=== PATIENT | female | born 1975 | race Caucasian/White ===

== ENCOUNTER 2020-12-20 06:40 | Day surgery (SDC) | payer OTHER ==
[~2020-12-20] VITALS: Ht 162.6 cm; Wt 93.0 kg
[~2020-12-20 06:40] MED LIST: IBUP-2077 PO; LISI1TAB51 PO
[2020-12-20] MEDS ORDERED: 0.9%NACL 1000ML 1,000 ML IV ONE (07:36)
[2020-12-20] MEDS ORDERED: PROPOFOL 10 MG/ML 20ML VIAL IV ONE ×3 (08:39→08:53)
[2020-12-20] MEDS ORDERED: EPHEDRINE SULFATE 50 MG/ML AMPULE ONE (09:01)
[2020-12-20 09:05] VITALS: BP 82/35
[2020-12-20 09:10] VITALS: BP 89/58
[2020-12-20 09:15] VITALS: BP 86/44
[2020-12-20 09:30] VITALS: BP 100/66
[2020-12-20] MEDS ORDERED: IPRATROPIUM/ALBUTEROL SULFATE 3 ML SOLUTION IH SCH (09:30)
[2020-12-20] MEDS ORDERED: IPRATROPIUM/ALBUTEROL SULFATE 3 ML SOLUTION IH ONE (09:43)
[2020-12-20 09:45] VITALS: BP 102/65
[2020-12-20 10:00] VITALS: BP 100/51
== END 2020-12-20 10:00 | disposition home or self-care (01) ==
LOC: ENDO 06:40 → DAH 06:40 → ENDO 10:00
PROVIDERS: ATTEND Internal Medicine Gastroenterology
DX: R10.11 Right upper quadrant pain (principal); Z20.822 Contact with and (suspected) exposure to COVID-19; K29.50 Unspecified chronic gastritis without bleeding; I10 Essential (primary) hypertension; F41.9 Anxiety disorder, unspecified; F32.9 Major depressive disorder, single episode, unspecified; Z98.891 History of uterine scar from previous surgery; Z90.710 Acquired absence of both cervix and uterus; Z98.890 Other specified postprocedural states; Z90.49 Acquired absence of other specified parts of digestive tract; Z79.899 Other long term (current) drug therapy
CPT/HCPCS: 43237; 43239; 94640; A4215; A4221; A4222; A4223; A4606; A4620; A4657; A4663; C9803; J2704 ×3; J3490; J7030 ×2; U0003; 43259

== ENCOUNTER 2025-09-27 11:56 | Emergency (ER) | payer BC, OTHER ==
[~2025-09-27] VITALS: Ht 162.6 cm; Wt 86.2 kg
--- NOTE | 2025-09-27 12:04 | ERN ---
ED Note History of Present Illness Stated Complaint: LEFT SIDE PAIN AFTER FALL Chief Complaint: Arm Swelling/Redness Time Seen by MD: 11:58 Dictation: PATIENT IS A 50-YEAR-OLD FEMALE COMING IN TODAY WITH COMPLAINTS OF LEFT ELBOW, LEFT HIP AND LEFT KNEE PAIN STATUS POST A SAME LEVEL TRIP FALL TWO NIGHTS AGO. SHE DENIES SYNCOPE SAID IT WAS A MECHANICAL FALL. NO HEAD INJURY NO LOC NO BLOOD THINNERS. 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 TOOK IBUPROFEN PRIOR TO ARRIVAL TODAY. Allergies: Coded Allergies: No Known Allergies (Unverified Allergy, Unknown, 09/27/25) Home Meds Reported Medications Ibuprofen (Ibuprofen 800 mg Tab) 800 Mg Tab, 800 MG PO Q6H PRN for PAIN, TAB 12/19/20 Lisinopril/Hydrochlorothiazide (Lisinopril-Hctz 20-12.5 mg Tab) 1 Each Tablet, 1 EACH PO DAILY, TAB 12/19/20 Past Medical History Past Medical History: Hypertension Surgical History: Appendectomy, Hysterectomy, Cholecystectomy, History: Not Applicable RN Note Reviewed/Agreed w/PFSH: Yes Review of System Dictation CONSTITUTIONAL: NEGATIVE EXCEPT FOR HPI HEAD/FACE: NEGATIVE EXCEPT FOR HPI EENT: NEGATIVE EXCEPT FOR HPI RESPIRATORY: NEGATIVE EXCEPT FOR HPI GASTROINTESTINAL/ABDOMINAL: NEGATIVE EXCEPT FOR HPI GENITOURINARY: NEGATIVE EXCEPT FOR HPI MUSCULOSKELETAL: NEGATIVE EXCEPT FOR HPI LEFT ELBOW/LEFT HIP/LEFT KNEE PAIN INTEGUMENTARY: NEGATIVE EXCEPT FOR HPI NEUROLOGICAL/PSYCH: NEGATIVE EXCEPT FOR HPI HEMATOLOGIC/LYMPHATIC: NEGATIVE EXCEPT FOR HPI ALL SYSTEMS NEGATIVE, EXCEPT NOTED ABOVE. 13 POINT REVIEW OF SYSTEMS ASSESSED AND ALL NEGATIVE EXCEPT FOR ABOVE. Initial Vital Sign VS Vital Signs Date Time Temp Pulse Resp B/P (MAP) Pulse Ox O2 Delivery O2 Flow Rate FiO2 09/27/25 11:57 98.2 95 16 149/86 98 Room Air 0 Physical Exam Dictation VITAL SIGNS REVIEWED GENERAL APPEARANCE: ALERT, ORIENTED X 3, MODERATE ACUTE DISTRESS, WELL DEVELOPED, NOURISHED. HEAD AND FACE: NON-TRAUMATIC. EYES: PERRL, PINK CONJUNCTIVAS, EYELID NO TRAUMA, ANTERIOR CHAMBER WITH ARCUS SENILIS. EARS: PINNAS INTACT AND NO SIGNS OF TRAUMA OR ERYTHEMA EAR CANALS CLEAR AND NO DISCHARGE TM NO ERYTHEMA NOSE: NO DISCHARGE, NO BLEEDING. OROPHARYNX: MOUTH NORMAL, TONGUE PINK, PHARYNX CLEAR,NO ERYTHEMA, TONSILS NO EXUDATES, NO ABSCESSES NOTED, MUCOUS MEMBRANE MOIST NECK: SUPPLE, NON-TENDER, NO THYROMEGALY, NO MASSES, NO JVD, NO BRUITS BREAST:DEFERRED CHEST:NO TENDERNESS, NO CREPITUS, NO PARADOXICAL MOVEMENT, NO RETRACTIONS LUNGS:CLEAR, WELL-VENTILATED, SYMMETRIC, NO RALES, NO WHEEZING, NO RHONCHI, NO STRIDOR, GOOD BREATH SOUNDS BILATERALLY HEART: REGULAR RATE, REGULAR RHYTHM, NO MURMUR, NO GALLOPS VASCULAR: NO PERIPHERAL EDEMA, ABDOMEN: SOFT, POSITIVE BOWEL SOUNDS, NONDISTENDED, NO GUARDING, NONTENDER, NO REBOUND, NO MASSES NO HEPATOMEGALY, NO SPLENOMEGALY, NO VILLEGAS'S SIGN, NO HERNIAS. RECTAL: DEFERRED GENITAL: DEFERRED NEUROLOGICAL: NORMAL SPEECH, MOTOR FUNCTION INTACT, SENSORY FUNCTION INTACT MUSCULOSKELETAL: LEFT LATERAL ELBOW WITH A ABRASION AND SWELLING. RESEARCH MOTION SECONDARY TO PAIN LEFT HIP AND LEFT ANTERIOR KNEE PAIN TENDERNESS. NO ROTATION OR SHORTENING. FULL RANGE OF MOTION NOTED. SKIN: COLOR PINK, DRY, NO TURGOR, NO RASH, NO LACERATIONS, NO ABRASIONS, NO CONTUSIONS. LYMPHATIC: DEFERRED Results (Laboratory/Radiology) Laboratory/Radiology 1320/LEFT ELBOW X-RAY NEGATIVE NO FAT PAD SIGN LEFT HIP NEGATIVE LEFT KNEE NEGATIVE Labs Reviewed?: Yes ED Course ED Course Orders Procedure Category Date Status Time Knee 3vws Lt RAD 09/27/25 Taken 12:01 Hip Unilat 2-3vw Left RAD 09/27/25 Taken 12:01 Elbow Comp 3+Vws Lt RAD 09/27/25 Taken 12:01 Acetaminophen 500mg PHA 09/27/25 Complete Tab (Tylenol 500mg T 12:30 Current Medications Medications (Trade) Dose Ordered Sig/Olesya Route PRN Reason Start Time Stop Time Status Last Admin Dose Admin Acetaminophen (TYLenol 500MG TAB) 1,000 mg ONCE ONCE PO 09/27/25 12:30 09/27/25 12:31 DC Vital Signs Date Time Temp Pulse Resp B/P (MAP) Pulse Ox O2 Delivery O2 Flow Rate FiO2 09/27/25 11:57 98.2 95 16 149/86 98 Room Air 0 1320/PATIENT AWARE THAT ALL HER X-RAY FINDINGS ARE NEGATIVE. SHE WILL BE PRESCRIBED IBUPROFEN 800 MG AND TOLD TO SEE HER DOCTOR IN THE NEXT 1-2 DAYS Medical Decision Making MDM MEDICAL DISCHARGE MAKING BASED ON EMPIRIC TREATMENT OF PAIN SECONDARY TO FALL LEFT ELBOW/LEFT KNEE/LEFT HIP X-RAYS PERFORMED AND NEGATIVE PATIENT DISCHARGED HOME WITH RICE INFORMATION IBUPROFEN 800 MG Q 8 HOURS ACTIVITY TOLERATED AND SEE HER PRIMARY CARE DOCTOR DX & DISP Disposition: Discharge Departure Impression: Primary Impression: Contusion of left elbow, initial encounter Additional Impressions: Contusion of left hip, initial encounter, Contusion of left knee, initial encounter, Fall Condition: Stable Scripts Ibuprofen (Ibuprofen 800 mg Tab) 800 Mg Tab 800 MG PO Q8H PRN for fever or pain, #30 TAB 0 Refills Prov: JEREMIAH BRAY 09/27/25 Additional Instructions: FOLLOW-UP WITH PRIMARY CARE PROVIDER IN 1 TO 2 DAYS. TAKE MEDICATIONS DIRECTED HERE IN THE EMERGENCY ROOM. OKAY TO CONTINUE HOME MEDICATIONS UNLESS OTHERWISE DISCUSSED DURING YOUR VISIT IN THE EMERGENCY ROOM TODAY. RETURN TO YOUR NEAREST EMERGENCY ROOM IF SYMPTOMS WORSEN OR IF THERE IS NO IMPROVEMENT. CALL 911 IF YOU NEED IMMEDIATE ASSISTANCE. TAKE TYLENOL OR MOTRIN O [id number] NEEDED AND IF NO CONTRAINDICATIONS ARE PRESENT. INCREASE ORAL HYDRATION. A WOUND CULTURE OR URINE CULTURE WAS ORDERED HERE IN THE EMERGENCY ROOM DEPARTMENT PLEASE FOLLOW-UP WITH PRIMARY CARE PROVIDER AND ADVISE THEM TO GET REPEAT PORTS FROM OUR FACILITY. IF YOU HAD ANY KAEL WRAP/SPLINTS THAT WERE APPLIED HERE, PLEASE DO NOT REMOVE THEM UNTIL YOU SEE YOUR PRIMARY CARE OR SPECIALTY. WARM COMPRESSES TO PAIN THREE TO 4 TIMES A DAY. TAKE IBUPROFEN EVERY 6-8 HOURS NEEDED FOR PAIN WITH FOOD. DIET AND ACTIVITY TOLERATED, SEE YOUR PRIMARY CARE DOCTOR AT THE [facility] FOR FOLLOW UP AND MANAGE Referrals: RITA PRATHER MD (PCP) Time of Disposition: 13:21 I have reviewed the case, and I agree with, Diagnosis and Plan JEREMIAH BRAY Sep 27, 2025 12:04
[2025-09-27] MEDS ORDERED: IBUP-2077 PO (13:21)
[2025-09-27 13:28] VITALS: BP 136/84; PULSE 87; RESP 20; TEMP 98.6; O2SAT 96
--- NOTE | 2025-09-27 14:07 | HMCIMG ---
EXAM: CR left Hip, 3 View. CLINICAL HISTORY: LEFT HIP PAIN STATUS POST FALL TWO DAYS AGO COMPARISON: None provided. FINDINGS: BONES: No acute fracture or aggressive appearing osseous lesion. JOINTS: No dislocation. The joint spaces are normal. SOFT TISSUES: The soft tissues are unremarkable. IMPRESSION: No acute osseous abnormality. /[place]
--- NOTE | 2025-09-27 14:08 | HMCIMG ---
EXAM: CR left elbow, 2 View. CLINICAL HISTORY: LEFT ELBOW PAIN SWELLING STATUS POST FALL TWO DAYS AGO COMPARISON: None provided. FINDINGS: BONES: No acute fracture or aggressive appearing osseous lesion. JOINTS: The joint spaces appear within normal limits. No dislocation. No radiographic evidence of a joint effusion. SOFT TISSUES: The soft tissues are unremarkable. IMPRESSION: No acute osseous abnormality. /[place]
--- NOTE | 2025-09-27 14:08 | HMCIMG ---
EXAM: CR left Knee, 3 View. CLINICAL HISTORY: KNEE PAIN STATUS POST FALL TWO DAYS AGO COMPARISON: None provided. FINDINGS: BONES: No acute fracture or aggressive appearing osseous lesion. JOINTS: The joint spaces show no significant degenerative disease. There is no joint effusion appreciated. SOFT TISSUES: The soft tissues are unremarkable. IMPRESSION: No acute osseous pathology evident. /[place]
== END 2025-09-27 13:35 | disposition home or self-care (01) ==
LOC: EDH 11:56
DX: S50.02XA Contusion of left elbow, initial encounter (principal); S80.02XA Contusion of left knee, initial encounter; S70.02XA Contusion of left hip, initial encounter; I10 Essential (primary) hypertension; Z90.49 Acquired absence of other specified parts of digestive tract; Z90.710 Acquired absence of both cervix and uterus; Z79.899 Other long term (current) drug therapy; Z98.890 Other specified postprocedural states; Z79.1 Long term (current) use of non-steroidal anti-inflammatories (NSAID); W01.0XXA Fall on same level from slipping, tripping and stumbling without subsequent striking against object, initial encounter; Y93.89 Activity, other specified; Y92.89 Other specified places as the place of occurrence of the external cause; Y99.8 Other external cause status
CPT/HCPCS: 73080; 73502; 73562; 99283